=== PATIENT | female | born 1970 | race Hispanic/Latino ===

== ENCOUNTER 2021-09-06 11:21 | Emergency (ER) | payer BC ==
[2021-09-06 12:21] LABS: #Basophils 0.1 thou/uL (0.0-0.2); #Lymphocytes 2.5 thou/uL (1.20-3.40); #Monocytes 0.8 thou/uL (0.11-0.59); #Neutrophils 7.4 thou/uL (1.40-6.50); %Basophils 0.7 % (0.0-1.0); %Eosinophils 0.2 % (0.0-10.0); %Lymphocytes 23.4 % (21.0-51.0); %Monocytes 7.3 % (0.0-10.0); %Neutrophils 68.4 % (42.0-75.0); Hemoglobin 14.7 g/dL (12.0-16.0); Mean Corpuscular HGB CONC 34.1 g/dL (32.0-36.0); Mean Corpuscular Hemoglobin 30.7 pg (27.0-31.0); Mean Platelet Volume 8.8 fL (7.4-10.4); Platelet Count 291 thou/uL (130-400); RBC Distribution Width 12.3 % (11.5-14.5); White Blood Cell (WBC) Count 10.8 thou/uL (4.8-10.8)
[2021-09-06 12:41] LABS: ALT (SGPT) 21 U/L (8-55); AST (SGOT) 13 U/L (5-34); Albumin 4.7 g/dL (3.5-5.0); Alkaline Phosphatase 71 U/L (40-110); Anion Gap 14 mmol/L (10-20); BUN (Urea Nitrogen) 10 mg/dL (9.8-20.1); Bilirubin, Total 0.5 mg/dL (0.2-1.2); CK (CPK) 53 U/L (29-168); Calc. Creatinine Clearance 0 mL/min (70-130); Calcium 9.8 mg/dL (7.8-10.44); Carbon Dioxide 23 mmol/L (22-29); Chloride 103 mmol/L (98-107); Estimated GFR 107; Globulin 2.7 g/dL (2.4-3.5); Glucose 115 mg/dL (70-105); Protein, Total 7.4 g/dL (6.0-8.3); Sodium 137 mmol/L (136-145)
[2021-09-06] MEDS ORDERED: Metoclopramide HCl 10 MG/2 ML VIAL ONE (12:41)
[2021-09-06] MEDS ORDERED: Fentanyl 100 MCG/2 ML VIAL ONE (12:41)
[2021-09-06] MEDS ORDERED: Dexamethasone 10 MG/ML VIAL ONE (12:41)
[2021-09-06] MEDS ORDERED: Ketorolac Tromethamine 30 MG/ML VIAL ONE (12:41)
[2021-09-06 12:49] LABS: Potassium 2.8 mmol/L (3.5-5.1)
[2021-09-06] MEDS ORDERED: Potassium Chloride 20 MEQ TAB ONE (13:05)
[2021-09-06] MEDS ORDERED: diphenhydrAMINE 50 MG/ML VIAL ONE (13:21)
== END 2021-09-06 14:28 | disposition home or self-care (01) ==
LOC: ERS 11:21
DX: E87.6 Hypokalemia (principal); R51.9 Headache, unspecified; Z20.822 Contact with and (suspected) exposure to COVID-19
CPT/HCPCS: 36415; 70450; 80053; 82550; 85025; 96361; 96374; 96375; J1100; J1200; J1885; J2765; J3010; U0003; U0005